=== PATIENT | male | born 1985 | race Caucasian/White ===

== ENCOUNTER 2018-01-25 10:49 | Observation (INO) | payer BC ==
[2018-01-25] MEDS ORDERED: hydrALAZINE 20 MG/ML VIAL SLOW IVP SCH (11:15)
[2018-01-25 11:40] LABS: Amphetamine Not Detected (NotDetected); Barbiturates Screen Not Detected (NotDetected); Benzodiazepine Screen Not Detected (NotDetected); Cocaine Metabolite Screen Not Detected (NotDetected); Medtox Control Line Valid? VALID (VALID); Medtox Reader # READER 1; Methadone Not Detected (NotDetected); Methamphetamine Not Detected (NotDetected); Opiate Screen Not Detected (NotDetected); Oxycodone Screen Not Detected (NotDetected); Phencyclidine (PCP) Not Detected (NotDetected); THC/Cannabinoid Screen Not Detected (NotDetected); Tricyclic Screen Not Detected (NotDetected)
[2018-01-25 11:52] LABS: CKMB 2.3 ng/mL (0-6.6); Troponin I Less than 0.010 ng/mL (< 0.028)
[2018-01-25] MEDS ORDERED: Guaifenesin DM 100-10/5 ML UDCUP PO PRN (12:18)
[2018-01-25] MEDS ORDERED: Senokot 8.6 MG TAB PO PRN (12:18)
[2018-01-25] MEDS ORDERED: Zolpidem Tartrate 5 MG TAB PO PRN (12:18)
[2018-01-25] MEDS ORDERED: Ondansetron HCl/PF 4 MG/2 ML Vial IVP PRN (12:18)
[2018-01-25] MEDS ORDERED: Hydrochlorothiazide 25 MG TAB PO SCH (12:30)
[2018-01-25] MEDS ORDERED: Acetaminophen 500 MG TAB ONE (12:37)
[2018-01-25] MEDS ORDERED: Labetalol HCl 100 MG/20 ML VIAL ONE (12:37)
[2018-01-25] MEDS ORDERED: NIFEdipine XL 30 MG TAB PO SCH (12:45)
--- NOTE | 2018-01-25 13:19 | HP ---
DATE OF ADMISSION: 01/25/2018 REASON FOR ADMISSION: Chest pain, hypertensive urgency. HISTORY OF PRESENT ILLNESS: The patient gives history of off and on chest pain, which is left-sided. Each episode lasts for 10 minutes and most of it come on irrespective of exertion. Of late, he is also getting short of breath on minimal exertion and some mild headache now, likely from nitro paste. No complaints of cough or fever. He initially went to [place] [facility] where he was found to have h ad systolic blood pressures about 200. 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 CURRENT MEDICATIONS: The patient has not been taking any medication for the last two years. ALLERGIES: No known drug allergies. PERSONAL HISTORY: Does not abuse alcohol or drugs. Smokes half pack a day. Lives with his . [place] in [email or web address]. FAMILY HISTORY: Mother of massive CT at the age of 39 years. Father of coronary artery di sease and he has had multiple stents at the age of 43 years. CODE STATUS: Full. REVIEW OF SYSTEMS: The following complete review of systems was negative, unless otherwise mentioned in the HPI or below: Constitutional: Weight loss or gain, ability to conduct usual activities. Sk in: Rash, itching. Eyes: Double vision, pain. ENT/Mouth: Nose bleeding, neck stiffness, pain, ten derness. Cardiovascular: Palpitations, dyspnea on exertion, orthopnea. Respiratory: Shortness of br eath, wheezing, cough, hemoptysis, fever or night sweats. Gastrointestinal: Poor appetite, abdomina l pain, heartburn, nausea, vomiting, constipation, or diarrhea. Genitourinary: Urgency, frequency, dysuria, nocturia. Musculoskeletal: Pain, swelling. Neurologic/Psychiatric: Anxiety, depression. Allergy/Immunologic: Skin rash, bleeding tendency. PHYSICAL EXAMINATION: GENERAL: The patient is a 32-year-old male who is currently not in any acute distress. VITAL SIGNS: Blood pressure 160/110, pulse 90 per minute, respiratory rate 18 per minute, temperatur e 98.7 degrees Fahrenheit, saturating 97% on room air. NECK: Supple. No elevated JVD. HEENT: Eyes, extraocular muscles intact. Pupils reacting to light. Oral cavity, mucous membranes a re moist. No exudates or congestion. CARDIOVASCULAR: S1, S2 heard. Regular rhythm. RESPIRATORY: Air entry 2+ bilateral. No rales or rhonchi. ABDOMEN: Soft. Bowel sounds heard. No tenderness, rigidity or guarding. EXTREMITIES: No peripheral edema or calf tenderness. VASCULAR SYSTEM: Peripheral pulses 1+ bilateral. No ischemic ulcerations or gangrene. CENTRAL NERVOUS SYSTEM: No gross focal deficits noted. The patient is alert, awake and oriented wel l. PSYCHIATRIC: The patient's mood is euthymic. No hallucinations or delusions. LABORATORY AND X-RAY FINDINGS: EKG done shows normal sinus rhythm at 90 beats per minute. There are signs of LVH seen. Chest x-ray done shows no acute cardiopulmonary abnormalities. Urine drug scree n is negative. Troponin x2 negative. CK-MB 2.6. BUN 13, creatinine 0.9. Serum bicarbonate is 24. Sodium is 139, potassium is 3.9, albumin is 4.5. BNP is 17. CBC is within normal limits. CLINICAL IMPRESSION AND PLAN: The patient will be under observation on telemetry for hypertensive ur gency and chest pain. The patient has been noncompliant with his medications and has not taken any m edications from last 2 years now. He has known history of hypertension diagnosed 3 years back when marilynn romero had partial nephrectomy on the left side. He has had issues with lisinopril with increased sweatin g and palpitations. He will be placed on Procardia XL, a small dose of Lopressor and hydrochlorothia zide for now. We will continue nitro paste for now. He will be on full dose aspirin. We will obtai n echo with 2D Doppler for left ventricular function and wall motion and nuclear stress test. The winston lindo has never had any prior cardiac workup. Both his parents less than 45 years of age from c [place]di[place] events. He will be kept n.p.o. after midnight. The patient has had coffee this morning.
[2018-01-25 13:54] VITALS: BMI 31.1
[2018-01-25 14:54] LABS: Troponin I 0.014 ng/mL (< 0.028)
[2018-01-25] MEDS: Acetaminophen 325 MG TAB PO PRN (16:01)
[2018-01-25] MEDS: Nitroglycerin 2% Ointment 1 INCH/1 GM Packet TOP SCH ×2 (16:03→22:03)
[2018-01-25] MEDS: Famotidine 20 MG TAB PO SCH (22:01)
[2018-01-25] MEDS: Metoprolol Tartrate 25 MG TAB PO SCH (22:01)
[2018-01-26 05:37] LABS: Albumin 4.3 g/dL (3.5-5.0); Anion Gap 14 mmol/L (10-20); BUN (Urea Nitrogen) 13 mg/dL (8.9-20.6); BUN/Creatinine Ratio 14.44; Calc. Creatinine Clearance 161 mL/min (70-130); Carbon Dioxide 25 mmol/L (22-29); Cardiac Risk 8.4 (Less than 4.5); Chloride 102 mmol/L (98-107); Cholesterol 245 mg/dl (< 200 Desired); Estimated GFR-MDRD Greater than 90; Glucose 107 mg/dL (70-105); HDL Cholesterol 29 mg/dL (>60 Neg Risk); Potassium 3.7 mmol/L (3.5-5.1); Sodium 137 mmol/L (136-145); Triglycerides 663 mg/dL (Less than 150)
[2018-01-26 05:46] LABS: #Basophils 0.1 thou/uL (0.0-0.2); #Eosinphils 0.3 thou/uL (0.0-0.7); #Lymphocytes 3.8 thou/uL (1.20-3.40); #Monocytes 0.7 thou/uL (0.11-0.59); #Neutrophils 4.6 thou/uL (1.40-6.50); %Basophils 1.1 % (0.0-1.0); %Eosinophils 2.7 % (0.0-10.0); %Monocytes 7.3 % (0.0-10.0); Hemoglobin 15.9 g/dL (14.0-18.0); Mean Corpuscular HGB CONC 34.7 g/dL (32.0-36.0); Mean Corpuscular Volume 86.4 fL (78.0-98.0); Platelet Count 282 thou/uL (130-400); RBC Distribution Width 12.1 % (11.5-14.5); Red Blood Cell (RBC) Count 5.29 mill/uL (4.70-6.10); White Blood Cell (WBC) Count 9.4 thou/uL (4.8-10.8)
[2018-01-26] MEDS: Nitroglycerin 2% Ointment 1 INCH/1 GM Packet TOP SCH (06:28)
[2018-01-26] MEDS ORDERED: Hydrochlorothiazide 25 MG TAB PO SCH (09:00)
[2018-01-26] MEDS ORDERED: Fenofibrate 48 MG TAB PO SCH (09:00)
[2018-01-26] MEDS ORDERED: Aspirin 325 MG TAB PO SCH (09:00)
[2018-01-26] MEDS ORDERED: NIFEdipine XL 60 MG TAB PO SCH (09:00)
[2018-01-26] MEDS: Famotidine 20 MG TAB PO SCH (11:18)
[2018-01-26] MEDS: Metoprolol Tartrate 25 MG TAB PO SCH (11:19)
[2018-01-26] MEDS: Acetaminophen 325 MG TAB PO PRN (11:22)
--- NOTE | 2018-01-26 14:04 | NM ---
NUCLEAR MEDICINE CARDIAC STRESS TEST WITH EJECTION FRACTION. 01/26/18 HISTORY: Chest pain, hypertension, dyslipidemia, smoker. COMPARISON: None. TECHNIQUE: Stress and rest performed after the intravenous administration of 31.6 and 31.4 millicuries technetiu m 99m Sestamibi. On the attenuated correction images there is no scar or ischemia. Wall motion is normal. Calculated ejection fraction is 42%. IMPRESSION: 1. No evidence of scar or ischemia. 2. Low ejection fraction at 42%. POS: [facility]
[2018-01-26] MEDS ORDERED: hydrALAZINE 20 MG/ML VIAL SLOW IVP SCH (14:30)
[2018-01-26] MEDS ORDERED: hydrALAZINE 25 MG TAB PO SCH (15:45)
[2018-01-26 15:47] VITALS: BP 144/79; TEMP 97.8
[2018-01-26] MEDS ORDERED: ADENOSINE 60 MG/20 ML VIAL ONE (16:04)
[2018-01-26] MEDS ORDERED: Atorvastatin Calcium 40 MG TAB PO SCH (21:00)
--- NOTE | 2018-01-29 13:25 | EKG ---
Test Reason : Blood Pressure : / mmHG Vent. Rate : 090 BPM Atrial Rate : 090 BPM P-R Int : 144 ms QRS Dur : 088 ms QT Int : 380 ms P-R-T Axes : 057 064 059 degrees QTc Int : 464 ms Normal sinus rhythm Nonspecific T wave abnormality Prolonged QT Abnormal ECG Confirmed by TANA JOHNSON ([id number]), production editor ABNER CAMPBELL ([id number]) on 01/29/2018 1:24:23 PM Referred By: Confirmed By:TANA JOHNSON
== END 2018-01-26 16:04 | disposition home or self-care (01) ==
LOC: ERS 10:49 → 2SW 13:13
PROVIDERS: ADMIT Internal Medicine; ATTEND Internal Medicine
DX: R07.9 Chest pain, unspecified (principal); I16.0 Hypertensive urgency; I10 Essential (primary) hypertension; E78.5 Hyperlipidemia, unspecified; F17.210 Nicotine dependence, cigarettes, uncomplicated; Z91.14 Patient's other noncompliance with medication regimen; Z90.49 Acquired absence of other specified parts of digestive tract; Z90.5 Acquired absence of kidney
CPT/HCPCS: 36415; 78452; 80061; 80069; 80306; 84443; 85025; 93005; 93017; 93306; 94760; 96374; 96375; 96376; A9500; G0378; J0153; J0360